=== PATIENT | female | born 1980 | race Caucasian/White ===

== ENCOUNTER → 2019-09-28 | Outpatient (CLI) | payer BC ==
[~2019-09-28] MED LIST: DBC1O30 TOP; DCS100C PO; Ibuprofen PO
== END ==
LOC: LAB 14:21
PROVIDERS: ATTEND Nurse Practitioner Family
DX: R05 Cough (principal); R50.9 Fever, unspecified; Z20.828 Contact with and (suspected) exposure to other viral communicable diseases
CPT/HCPCS: 36415; 86769

== ENCOUNTER → 2019-11-06 | Outpatient (CLI) | payer BC | LOC: LABNPT 06:53 | PROVIDERS: ATTEND Family Medicine | DX: R11.0 Nausea (principal); R09.81 Nasal congestion; Z20.828 Contact with and (suspected) exposure to other viral communicable diseases ==

== ENCOUNTER → 2020-09-07 | Outpatient (CLI) | payer BC ==
--- NOTE | 2020-09-07 19:46 | Diagnostic Imaging Report ---
INDICATION: Screening. At this time there is no current complaint. EXAMINATION: Bilateral digital screening mammogram with CAD. 3D tomographic images were obtained and reviewed. The current study was also evaluated with a Computer Aided Detection (CAD) system. COMPARISON: None. This is the patient's baseline screening mammogram. FINDINGS: The fibroglandular tissue in both breasts is heterogeneously dense. This does limit the sensitivity of this exam. There is no primary or secondary sign of malignancy noted. IMPRESSION: 1. There is no evidence for malignancy. 2. The patient should have her annual bilateral screening mammogram on schedule in August 2021. ACR BI-RADS Category 1: Negative. Result letter will be mailed to the patient. Note: At least 10% of breast cancer is not imaged by mammography. Dictated by: Dictated on workstation # [id number]
== END ==
LOC: RAD 10:15
PROVIDERS: ATTEND Nurse Practitioner Family
DX: Z12.31 Encounter for screening mammogram for malignant neoplasm of breast (principal)
CPT/HCPCS: 77063; 77067

== ENCOUNTER → 2022-07-10 | Outpatient (CLI) | payer BC, OTHER ==
--- NOTE | 2022-07-10 18:33 | Diagnostic Imaging Report ---
INDICATION: , anatomic survey, 19 weeks 4 days. TECHNIQUE: Multiple real-time grayscale images were obtained over the gravid uterus. COMPARISON: None. FINDINGS: There is a single live intrauterine gestation in variable presentation. The cervix measures 4.7 cm in length. No funneling or endocervical fluid is appreciated. The placenta is posterior without evidence of previa. A four-chamber heart is seen. heart rate measures 143 BPM. The stomach is seen. Lateral ventricle is seen. Cerebellum is seen. Cisterna magna is seen. The cord insertion is seen. The bladder is seen. There are two umbilical arteries demonstrating a three-vessel cord. The upper spine is seen. The lower spine is not well seen. The kidneys are seen. The nose and lips are seen. The right ventricular outflow tract and the left ventricular outflow tract are seen. Bilateral lower extremities are seen. The profile is seen. Bilateral upper extremities are seen. The amniotic fluid index measures 13.8 cm. Biometrical measurements are as follows: Biparietal 4.57 cm, age 19 weeks 6 days. Head circumference 17.27 cm, age 19 weeks 6 days. Abdominal circumference 14.30 cm, age 19 weeks 5 days. Femur length 3.30 cm, age 20 weeks 3 days. Sonographic estimate age: 20 weeks 0 days. Sonographic estimated date of delivery: 11/27/2022. Estimated Weight: 322 gm (+/- 48 gm). LMP percentile: 68%. heart rate: 143 beats per minute. number: 1 of 1. IMPRESSION: 1. Single live intrauterine gestation measuring at 20 weeks and 0 days which is within range of the clinical dates. 2. No abnormality is seen on anatomic survey. The lower spine is not well seen. 3. Variable presentation. Dictated by: Dictated on workstation # [id number]
== END ==
LOC: RAD 14:12
PROVIDERS: ATTEND Nurse Practitioner Women's Health
DX: Z34.02 Encounter for supervision of normal first pregnancy, second trimester (principal); Z3A.20 20 weeks gestation of pregnancy
CPT/HCPCS: 76805

== ENCOUNTER → 2022-09-12 | Outpatient (CLI) | payer OTHER ==
--- NOTE | 2022-09-12 23:28 | Diagnostic Imaging Report ---
INDICATION: Follow-up spine. FINDINGS: Boyd gestation is in breech position. Measurements today correlate with an age 28 weeks 5 days. Amniotic fluid volume normal. The SUDARSHAN is 15.4. The placenta posterior. There is no abruption or previa. Regular heart rate of 153 bpm. Cervix nondilated, 5.8 cm. spine appears unremarkable at dedicated anatomic evaluation. IMPRESSION: Prior anatomical survey complete with normal appearance of the spine. Dictated on workstation # [id number]
== END ==
LOC: RAD 14:57
PROVIDERS: ATTEND Obstetrics & Gynecology
DX: Z36.89 Encounter for other specified antenatal screening (principal); Z3A.28 28 weeks gestation of pregnancy
CPT/HCPCS: 76816

== ENCOUNTER 2022-11-29 06:27 | Inpatient (IN) | payer OTHER ==
[~2022-11-29] VITALS: Ht 166 cm; Wt 97.0 kg
[2022-11-29 06:43] VITALS: BP 122/83
--- NOTE | 2022-11-29 07:27 | History & Physical-OB ---
OB - Chief Complaint & HPI Date/Time Date of Admission: Date of Admission: Nov 29, 2022 at 06:27 Date seen by a Provider: Nov 29, 2022 Time Seen by a Provider: 08:00 Chief Complaint/History OB-Reason for Admission/Chief: Induction of Labor Hx : 3 Hx Para: 2 Expected Date of Delivery: Nov 30, 2022 Gestational Age in Weeks: 39 Gestational Age in Days: 6 Indication for induction: medical complication (gestational diabetes, advanced maternal age) Admission Nurse Assessment Rev: Yes History of Labs A+ GBS neg RI Hep B/C neg HIV neg RPR neg Other This 42yo presents to L&D for IOL however, she was linh since 1 am today. She denies LOF VB or CTXs. significant for GDM (diet controlled), and Adv maternal age. Allergies and Home Medications Allergies Coded Allergies: nitrofurantoin (Unverified Allergy, Unknown, 12/04/13) Patient Home Medication List Home Medication List Reviewed: Yes Dibucaine (Nupercainal 1% Oint) 30 Gm Oint, 1 GM TOP QID PRN for PAIN Prescribed by: ABBIE LOCKETT on 12/05/131152 Last Action: Reviewed Docusate Sodium (Colace) 100 Mg Cap, 100 MG PO BID Prescribed by: ABBIE LOCKETT on 12/05/131152 Last Action: Reviewed [Ibuprofen] 600 MG TAB, 600 MG PO Q6H Prescribed by: ABBIE LOCKETT on 12/05/131152 Last Action: Held OB - History Hx of Present Care: Yes Ultrasounds: Normal mid trimester US Obstetrical Complications: Gestational Diabetes Medical Complications: None Information Induced Hypertension: No Maternal Gestational Diabetes: Yes Hemorrhage: No Obstetrical History Hx : 3 Hx Para: 2 Hx # Term Pregnancies: 2 Hx Termination: No Hx Multiple Gestation: No Hx Ectopic : No Hx Stillbirth: No Hx Complication: No Hx Induced Hypertens: No Hx Maternal Gestational Diabet: Yes (with first ) Hx Hemorrhage: No Delivery History Hx Dystocia: No Hx Forceps Assisted Delivery: No Hx Vacuum Extraction Assisted: No Hx Placenta Abnormality: No Hx Distress: No Hx Large For Gestational Age I: No Hx Small for Gestational Age I: No Hx Section: No Hx Vaginal Delivery Post C-Sec: No Hx Blood Disorders: No Adverse Rxn to Tranfusion: No Risk Variables Obstetrical Risk Variables: POA Gestational Diabetes Patient Past Medical History none Social History/Family History Alcohol Use: Denies Use Smoking Cessation: Never smoker 2nd Hand Smoke Exposure: No Immunizations Hepatitis A: Yes Hepatitis B: Yes Tetanus Booster (TDap): Unknown Rubella: immune RPR/VDRL: Negative GBS Status: Negative HBsAG: Negative OB - Admission Exam Physical Exam HEENT: NCAT Heart: Rhythm Normal Lungs: Clear Abdomen: Gravid Extremities: Normal Reflexes: Normal Cervical Dilatation: 3cm Effacement: Other (60%) Station: -3 Membranes: Intact Heart Rate: 140's Accelerations: Accelerations Present Decelerations: No Decelerations Short Term Variability: Present Attorney General Variability: Average (6-25) Contractions on Admission: < 5 Minutes Apart Intensity: Moderate Barker Scoring Tool (Modified) Dilation (cm): 3-4cm (2) Effacement (%): 51-79% (2) Descent/Station: -3 (0) Cervix Consistency: Soft (2) Cervix Position: Anterior (2) Barker Score: 8 OB - Assessment/Plan/Diagnosis Assessment Assessment: active labor Admission Dx IUP @ 39w6d GDMA1 Adv mat age Active labor Admission Status: Inpatient Order (span 2 midnights) Reason for Inpatient Admission: IUP @ 39w6d GDMA1 Adv mat. age Plan Plan: Expectant Management PAXTON MONTENEGRO DO Nov 29, 2022 07:27
[2022-11-29] MEDS ORDERED: D5 LR 1,000 ML IV SOLN 1,000 ML IV SCH (07:30)
[2022-11-29] MEDS ORDERED: OXYTOCIN DRIP PRE-MIX 500 ML IV SCH ×2 (07:30→10:30)
[2022-11-29 08:01] LABS: BASOPHILS % (AUTO) 0 % (0-10); HEMOGLOBIN 13.8 g/dL (11.5-16.0); MEAN PLATELET VOLUME 11.5 fL (9.0-12.2)
[2022-11-29 08:02] LABS: EOSINOPHILS % (AUTO) 0 % (0-10); HEMATOCRIT 41 % (35-52); LYMPHOCYTES # (AUTO) 1.3 10^3/uL (1.0-4.0); LYMPHOCYTES % (AUTO) 13 % (12-44); MEAN CORPUSCULAR HEMOGLOBIN 30 pg (25-34); MEAN CORPUSCULAR HGB CONC 34 g/dL (32-36); MEAN CORPUSCULAR VOLUME 90 fL (80-99); MONOCYTES # (AUTO) 0.6 10^3/uL (0.0-1.0); MONOCYTES % (AUTO) 6 % (0-12); NEUTROPHILS # (AUTO) 7.5 10^3/uL (1.8-7.8); NEUTROPHILS % (AUTO) 79 % (42-75); PLATELET COUNT 104 10^3/uL (130-400); WHITE BLOOD COUNT 9.4 10^3/uL (4.3-11.0)
[2022-11-29 08:06] LABS: SMEAR SCAN COMMENT YES
[2022-11-29] MEDS ORDERED: LACTATED RINGERS 1,000 ML 1,000 ML IV SCH ×3 (09:00)
[2022-11-29] MEDS ORDERED: LACTATED RINGERS 1,000 ML 1,000 ML IV ONE (09:01)
--- NOTE | 2022-11-29 09:02 | OB Triage Report ---
Standard Progress Note Progress Notes/Assess & Plan Date Seen by a Provider: Nov 29, 2022 Time Seen by a Provider: 08:25 Expected Date of Delivery: Nov 30, 2022 Gestational Age in Weeks: 39 Gestational Age in Days: 6 LMP/LAY Comment: Pt feeling CTXs FHR 140s CAT I CVX 6/100/-1 TOCOS Q2-4min AROM Thick IUPC placed will start amnioinfusion PAXTON MONTENEGRO DO Nov 29, 2022 09:02
[2022-11-29] MEDS ORDERED: OXYTOCIN DRIP PRE-MIX 500 ML IV ONE (10:04)
--- NOTE | 2022-11-29 10:28 | OB Labor & Delivery Record ---
Vag Delivery Note Vag Delivery Note Date of Delivery: 11/29/22 Preoperative Diagnosis: Daniella Walter is a (42 /Para 3 / 2,Gestational Age (wks)39with Gestational diabetes Postoperative Diagnosis: Same Surgeon: PAXTON MONTENEGRO In Service Coordinator: [] Anesthesia: None Delivery Type: Continues vaginal delivery Findings: Meconium stained fluid Liveborn female infant, apgars 8/9, weight Pending Lacerations: None Intact placenta with 3 vessel cord. Nuchal cord x1 loose Estimated Blood Loss: 100 ml Complications: None Condition: Stable Description of Procedure: The patient is a 42 year old female who presented In active labor at 39 weeks 6 days. She was GBS negative rubella immune. Patient's has been significant for advanced maternal age and gestational diabetes which was diet- controlled.. She was admitted and informed consent was obtained. The patient was complete and began to push on hands and knees. She delivered the head in an KATHY position. There is a nuchal cord x1 which was loose and delivered through. The anterior shoulder (right) delivered followed by the posterior shoulder followed by the rest the . The was placed on maternal arms. The patient then turned around and after 60 seconds the cord was clamped and then cut by the father. The placenta delivered spontaneously intact with three-vessel cord. The cervix, vagina, periurethral and perineal areas were all inspected. There was an abrasion on the perineal area, but did not require any suture. The estimated blood loss was 100 cc. The mother and tolerated the procedure well and a recovering in the room in stable condition. All sponge instrument and needle counts were correct x2. Vitals - Labs Vital Signs - I&O Vital Signs Date Time Temp Pulse Resp B/P (MAP) Pulse Ox O2 Delivery O2 Flow Rate FiO2 11/29/22 06:43 36.4 109 20 98 Room Air Labs Laboratory Tests 11/29/22 07:45: White Blood Count 9.4, Red Blood Count 4.58, Hemoglobin 13.8, Hematocrit 41, Mean Corpuscular Volume 90, Mean Corpuscular Hemoglobin 30, Mean Corpuscular Hemoglobin Concent 34, Red Cell Distribution Width 14.2, Platelet Count 104L, Mean Platelet Volume 11.5, Immature Granulocyte % (Auto) 1, Neutrophils (%) (Auto) 79H, Lymphocytes (%) (Auto) 13, Monocytes (%) (Auto) 6, Eosinophils (%) (Auto) 0, Basophils (%) (Auto) 0, Neutrophils # (Auto) 7.5, Lymphocytes # (Auto) 1.3, Monocytes # (Auto) 0.6, Eosinophils # (Auto) 0.0, Basophils # (Auto) 0.0, Immature Granulocyte # (Auto) 0.1, Percent Immature Platelet Fraction 7.9H, Glucose Level 95, Syphilis Total Antibody Negative, Smear Scan YES 11/29/22 09:24: Glucometer 105 PAXTON MONTENEGRO DO Nov 29, 2022 10:28
[2022-11-29] MEDS ORDERED: MEASLES, MUMPS, RUBELLA VACCINE (MMR) SQ ONE (10:30)
[2022-11-29] MEDS ORDERED: NALOXONE 0.4 MG/ML 1 ML VIAL IV PRN (10:30)
[2022-11-29] MEDS ORDERED: WITCH HAZEL(TUCKS) 40 EA JAR TOP PRN (10:30)
[2022-11-29] MEDS ORDERED: Tetanus/Diphtheria/Pertussis (Acell) ADULT Vaccine 0.5 ML IM ONE (10:30)
[2022-11-29] MEDS ORDERED: DIBUCAINE 1% OINTMENT 28 GM TUBE TOP PRN (10:30)
[2022-11-29] MEDS ORDERED: BENZOCAINE/MENTHOL (DERMOPLAST) 56 ML CAN TP PRN (10:30)
[2022-11-29 10:36] VITALS: BP 114/59
[2022-11-29 10:55] VITALS: BP 128/77
[2022-11-29] MEDS: IBUPROFEN 800 MG TABLET PO SCH ×2 (11:00→18:22)
[2022-11-29 11:27] VITALS: BP 122/75
[2022-11-29] MEDS ORDERED: CATHETER FLUSH 10 ML SYR IV SCH ×2 (14:00)
[2022-11-29 16:00] VITALS: BP 99/59
[2022-11-29] MEDS: ACETAMINOPHEN 500 MG TABLET PO SCH ×2 (18:22→21:43)
[2022-11-29 21:00] VITALS: BP 119/68
[2022-11-29] MEDS: DOCUSATE SODIUM 100 MG CAPSULE PO SCH (21:38)
[2022-11-30 02:05] VITALS: BP 94/59
[2022-11-30] MEDS: IBUPROFEN 800 MG TABLET PO SCH ×2 (02:05→10:19)
[2022-11-30 06:05] VITALS: BP 112/78
[2022-11-30 06:12] LABS: MEAN CORPUSCULAR HGB CONC 33 g/dL (32-36); MEAN CORPUSCULAR VOLUME 90 fL (80-99); NEUTROPHILS # (AUTO) 5.1 10^3/uL (1.8-7.8)
[2022-11-30 06:13] LABS: BASOPHILS % (AUTO) 0 % (0-10); EOSINOPHILS # (AUTO) 0.1 10^3/uL (0.0-0.3); EOSINOPHILS % (AUTO) 1 % (0-10); HEMATOCRIT 38 % (35-52); HEMOGLOBIN 12.5 g/dL (11.5-16.0); LYMPHOCYTES # (AUTO) 1.8 10^3/uL (1.0-4.0); LYMPHOCYTES % (AUTO) 24 % (12-44); MEAN CORPUSCULAR HEMOGLOBIN 30 pg (25-34); MEAN PLATELET VOLUME 11.9 fL (9.0-12.2); MONOCYTES # (AUTO) 0.7 10^3/uL (0.0-1.0); MONOCYTES % (AUTO) 9 % (0-12); NEUTROPHILS % (AUTO) 66 % (42-75); PLATELET COUNT 100 10^3/uL (130-400); WHITE BLOOD COUNT 7.7 10^3/uL (4.3-11.0)
[2022-11-30] MEDS ORDERED: PNV1TABL67 PO (06:55)
--- NOTE | 2022-11-30 06:57 | Discharge Summary ---
Discharge Summary Hospital Course Problems Reviewed?: Yes Hospital Course Date of Admission: Nov 29, 2022 at 06:27 Admission Diagnosis : Family Physician/Provider: Alice Hooper MD Date of Discharge: 11/30/22 Discharge Diagnosis: s/p GDM Hospital Course: Patient was admitted for active labor deliveredVia spontaneous vaginal delivery. She did very wellIn the period. She was discharged home on day #1 with instructions Labs and Pending Lab Test: Laboratory Tests 11/29/22 07:45: White Blood Count 9.4, Red Blood Count 4.58, Hemoglobin 13.8, Hematocrit 41, Vilma n Corpuscular Volume 90, Mean Corpuscular Hemoglobin 30, Mean Corpuscular Hemoglobin Concent 34, Red Cell Distribution Width 14.2, Platelet Count 104L, Mean Platelet Volume 11.5, Immature Granulocyte % (Auto) 1, Neutrophils (%) (Auto) 79H, Lymphocytes (%) (Auto) 13, Monocytes (%) (Auto) 6, Eosinophils (%) (Auto) 0, Basophils (%) (Auto) 0, Neutrophils # (Auto) 7.5, Lymphocytes # (Auto) 1.3, Monocytes # (Auto) 0.6, Eosinophils # (Auto) 0.0, Basophils # (Auto) 0.0, Immature Granulocyte # (Auto) 0.1, Percent Immature Platelet Fraction 7.9H, Glucose Level 95, Syphilis Total Antibody Negative, Smear Scan YES 11/29/22 09:24: Glucometer 105 11/30/22 05:50: White Blood Count 7.7, Red Blood Count 4.20, Hemoglobin 12.5, Hematocrit 38, Mean Corpuscular Volume 90, Mean Corpuscular Hemoglobin 30, Mean Corpuscular Hemoglobin Concent 33, Red Cell Distribution Width 14.5, Platelet Count 100L, Mean Platelet Volume 11.9, Immature Granulocyte % (Auto) 1, Neutrophils (%) (Auto) 66, Lymphocytes (%) (Auto) 24, Monocytes (%) (Auto) 9, Eosinophils (%) (Auto) 1, Basophils (%) (Auto) 0, Neutrophils # (Auto) 5.1, Lymphocytes # (Auto) 1.8, Monocytes # (Auto) 0.7, Eosinophils # (Auto) 0.1, Basophils # (Auto) 0.0, Immature Granulocyte # (Auto) 0.0, Percent Immature Platelet Fraction 6.1 Home Meds Active [Ibuprofen] 600 MG Tab 600 Mg PO Q6H Colace (Docusate Sodium) 100 Mg Cap 100 Mg PO BID Nupercainal 1% Oint (Dibucaine) 30 Gm Oint 1 Gm TOP QID PRN Discharge Diet: Regular Diet Symptoms to Report to : Pain Increased, Fever Over 101 Degrees F, Pain/Pressure in Chest, Vaginal Bleeding Increase, Vaginal Discharge Foul For Any Problems or Questions: Contact Your Physician Discharge Physical Examination Allergies: Coded Allergies: nitrofurantoin (Unverified Allergy, Unknown, 12/04/13) Vitals & I&Os Vital Signs Date Time Temp Pulse Resp B/P (MAP) Pulse Ox O2 Delivery O2 Flow Rate FiO2 11/30/22 06:05 36.1 84 18 112/78 (89) 97 Room Air Discharge Summary Date of Admission Nov 29, 2022 at 06:27 Date of Discharge Discharge Date: Nov 30, 2022 Supervisory-Addendum Brief Verification & Attestation Participated in pt care: history, MDM, physical Personally performed: exam, history, MDM, supervision of care Care discussed with: Medical Student Procedures: n/a Results interpretation: Verified all documentation I saw and examined this patient personally PAXTON MONTENEGRO DO Nov 30, 2022 06:57
[2022-11-30] MEDS ORDERED: PRENATAL VITAMIN TABLET PO SCH (07:00)
--- NOTE | 2022-11-30 07:05 | Postpartum Progress Note ---
Note Note Day #1 Subjective: Patient is without complaints. Ambulating, voiding. Tolerating a regular diet without nausea or vomiting. Normal lochia. Pain is well controlled with oral pain medications. Breast-feeding Objective: Vital signs stable afebrile Physical Exam: General - Alert and oriented, no apparent distress Breast symmetrical no erythema edema or engorgement Abdomen - Soft, appropriately tender to palpation, non-distended, fundus firm at umbilicus Lochia minimal Extremities - no edema, negative Darshana's bilaterally Assessment: [] post- day # 1, status post Spontaneous vaginal delivery. Recovering well, hemodynamically stable Plan: Routine care. Encourage breast feeding. Encourage ambulation. Ferrous sulfate supplementation. Plan for discharge for today Vitals - Labs Vital Signs - I&O Vital Signs Date Time Temp Pulse Resp B/P (MAP) Pulse Ox O2 Delivery O2 Flow Rate FiO2 11/30/22 06:05 36.1 84 18 112/78 (89) 97 Room Air 11/30/22 02:05 36.1 87 18 94/59 (71) 97 Room Air 11/29/22 21:00 37.3 98 20 119/68 (85) 97 Room Air 11/29/22 16:00 37.0 95 20 99/59 (72) 98 Room Air 11/29/22 11:27 88 122/75 (91) 11/29/22 11:00 36.3 11/29/22 10:55 97 128/77 (94) 11/29/22 10:36 36.3 96 114/59 (77) I & O 11/30/22 06:59 Intake Total 1000 ml Balance 1000 ml Labs Laboratory Tests 11/29/22 07:45: White Blood Count 9.4, Red Blood Count 4.58, Hemoglobin 13.8, Hematocrit 41, Mean Corpuscular Volume 90, Mean Corpuscular Hemoglobin 30, Mean Corpuscular Hemoglobin Concent 34, Red Cell Distribution Width 14.2, Platelet Count 104L, Mean Platelet Volume 11.5, Immature Granulocyte % (Auto) 1, Neutrophils (%) (Auto) 79H, Lymphocytes (%) (Auto) 13, Monocytes (%) (Auto) 6, Eosinophils (%) (Auto) 0, Basophils (%) (Auto) 0, Neutrophils # (Auto) 7.5, Lymphocytes # (Auto) 1.3, Monocytes # (Auto) 0.6, Eosinophils # (Auto) 0.0, Basophils # (Auto) 0.0, Immature Granulocyte # (Auto) 0.1, Percent Immature Platelet Fraction 7.9H, Glucose Level 95, Syphilis Total Antibody Negative, Smear Scan YES 11/29/22 09:24: Glucometer 105 11/30/22 05:50: White Blood Count 7.7, Red Blood Count 4.20, Hemoglobin 12.5, Hematocrit 38, Mean Corpuscular Volume 90, Mean Corpuscular Hemoglobin 30, Mean Corpuscular Hemoglobin Concent 33, Red Cell Distribution Width 14.5, Platelet Count 100L, Mean Platelet Volume 11.9, Immature Granulocyte % (Auto) 1, Neutrophils (%) (Auto) 66, Lymphocytes (%) (Auto) 24, Monocytes (%) (Auto) 9, Eosinophils (%) (Auto) 1, Basophils (%) (Auto) 0, Neutrophils # (Auto) 5.1, Lymphocytes # (Auto) 1.8, Monocytes # (Auto) 0.7, Eosinophils # (Auto) 0.1, Basophils # (Auto) 0.0, Immature Granulocyte # (Auto) 0.0, Percent Immature Platelet Fraction 6.1 PAXTON MONTENEGRO DO Nov 30, 2022 07:04
[2022-11-30] MEDS: DOCUSATE SODIUM 100 MG CAPSULE PO SCH (08:40)
[2022-11-30 08:45] VITALS: BP 114/66
[2022-11-30] MEDS ORDERED: FERROUS SULFATE 325 MG (IRON) TABLET PO SCH (09:00)
[2022-11-30 12:40] VITALS: BP 120/75
[2022-11-30 13:30] VITALS: BP 120/75
== END 2022-11-30 13:30 | disposition home or self-care (01) | DRG 807 ==
LOC: LDRP 06:27
PROVIDERS: ADMIT Obstetrics & Gynecology; ATTEND Obstetrics & Gynecology
PROC: 10E0XZZ Delivery of Products of Conception, External Approach (ICD-10-PCS; principal; 2022-11-29)
PROC: 10907ZC Drainage of Amniotic Fluid, Therapeutic from Products of Conception, Via Natural or Artificial Opening (ICD-10-PCS; 2022-11-29)
PROC: 3E033VJ Introduction of Other Hormone into Peripheral Vein, Percutaneous Approach (ICD-10-PCS; 2022-11-29)
DX: O24.420 Gestational diabetes mellitus in childbirth, diet controlled (principal); Z37.0 Single live birth; Z3A.39 39 weeks gestation of pregnancy; O69.81X0 Labor and delivery complicated by cord around neck, without compression, not applicable or unspecified
CPT/HCPCS: 36415; 82947; 85025; 86780; 86850; 86900; 86901